=== PATIENT | female | born 1955 | race African-American/Black ===

== ENCOUNTER 2025-01-08 12:18 | Emergency (ER) | payer MEDICAID, MEDICARE, OTHER ==
[~2025-01-08] VITALS: Ht 160 cm; Wt 73.0 kg
[~2025-01-08 12:18] MED LIST: GLIP5TAB22; METF-414; OMEP20CA14 PO
[2025-01-08 12:20] VITALS: O2SAT 100
[2025-01-08 12:57] VITALS: TEMP 37.2
[2025-01-08 13:07] LABS: BASOPHILS % 0.5 % (0.0-2.0); EOSINOPHILS % 2.7 % (0.0-5.0); HEMATOCRIT. 35.6 % (36.0-48.0); HEMOGLOBIN. 11.8 g/dL (12.0-16.0); LYMPHOCYTES % 34.4 % (20.0-50.0); MEAN PLATELET VOLUME 6.9 fl (7.4-10.4); MONOCYTES % 8.1 % (2.0-8.0); NEUTROPHILS % 54.3 % (40.0-76.0); PLATELET 293 x1000/uL (130-400); RED BLOOD CELL COUNT 4.20 mill/uL (4.2-5.4); RED CELL DISTRIBUTION WIDTH 14.2 % (11.6-14.6)
[2025-01-08 13:18] LABS: INR 1.0
[2025-01-08 13:20] LABS: CREATININE 0.9 mg/dL (0.6-1.0)
[2025-01-08 13:21] LABS: TROPONIN I HIGH SENSITIVITY < 4 ng/L (3.0-34); UREA NITROGEN BLOOD 10 mg/dL (9-23)
[2025-01-08 13:22] LABS: ASPARTATE AMINOTRANSFERASE 15 IU/L (<34); BILIRUBIN DIRECT < 0.1 mg/dL (<=3.0)
[2025-01-08 13:23] LABS: BILIRUBIN TOTAL 0.3 mg/dL (0.1-1.0); PROTEIN TOTAL 6.8 g/dL (6.0-8.3)
[2025-01-08 14:19] VITALS: BP 150/79; PULSE 92; RESP 17; O2SAT 100
[2025-01-08 14:54] LABS: CLARITY URINE CLEAR (CLEAR); COLOR URINE YELLOW (YELLOW); GLUCOSE URINE NEGATIVE (NEGATIVE); KETONES URINE NEGATIVE (NEGATIVE); LEUKOCYTE ESTERASE URINE TRACE (NEGATIVE); NITRITE URINE POSITIVE (NEGATIVE); OCCULT BLOOD URINE NEGATIVE (NEGATIVE); PH URINE 6.5 (4.5-8.0); PROTEIN URINE NEGATIVE (NEGATIVE); SPECIFIC GRAVITY URINE 1.005 (1.005-1.030); UROBILINOGEN URINE 0.2 E.U./dL (0.2-1.0)
[2025-01-08 15:12] LABS: BACTERIA URINE 4+; RBC URINE NONE SEEN /hpf (0-2); SQUAMOUS EPITHELIAL CELL URINE FEW /lpf (RARE/1+); WBC URINE 0-2 /hpf (0-2); YEAST URINE NONE SEEN
== END 2025-01-08 14:30 | disposition home or self-care (01) ==
LOC: EDBEDREQ 12:36 → ER 12:45 → CMPBEDREQ 01-09 08:31
DX: R55 Syncope and collapse (principal); E11.9 Type 2 diabetes mellitus without complications; I10 Essential (primary) hypertension; Z79.899 Other long term (current) drug therapy
CPT/HCPCS: 36415; 71045; 80048; 80076; 81003; 82962; 84484; 85025; 93005; 99285